=== PATIENT | male | born 1950 | race Caucasian/White ===

== ENCOUNTER 2016-09-08 16:47 | Emergency (ER) | payer OTHER ==
--- NOTE | 2016-09-08 17:09 | EDPHY ---
H & P Stated Complaint: reduced vision to right eye Time Seen by Provider: 09/08/16 17:08 HPI/ROS: Chief Complaint: Decreased vision HPI: 65-year-old male presenting complaining of worsening vision in his right eye which has been progressing for the last 14 days. Patient states that he was traveling and walking in [facility] for the past several weeks when he noticed gradually worsening blurring of his vision in his right eye. He x-ray also developed an infection in his legs and was admitted to the hospital in [facility] about a week ago. Patient had a CT scan of his head and EEG and blood work at that time which from negative. Does have a history of a seizure disorder past secondary to a traumatic brain injury. He has been compliant with medications and has not had a seizure in quite some time. Patient states that his vision is affected only in his right eye and is all of his vision. He says that he can see light but everything seems very opacified. He is not able to make out any fevers or shapes. He is normal vision in his left eye. Does not have a problem with his eye in the past. Does not wear contact lenses or glasses. He has no pain. He has not had any redness or discharge in that eye. No traumatic injuries. ROS: 10 point Review of Systems is negative except as noted in the HPI. PMH: Traumatic brain injury, seizure disorder Medications: Lamictal, Keppra, Klonopin Social History: No smoking, no alcohol, no recreational drug use Family History: non-contributory Physical Exam: General: Awake, alert, no acute distress HEENT: Nose: no rhinorrhea Eye Exam Visual Acuity: Left eye 20/20, right eye greater than 20/200 EOM: Intact OU Visual Neumann: Intact OU, patient is able to see movement in the eye but is not able to make out shapes. Pupil: Equal, round and reactive to light and accomodation OU External: Lids, lashes and margins normal OU Fundoscopy; unable to assess Anterior chambers clear without cells or flare, no hyphema, normal angles Neck: Supple, no JVD Chest: nontender, lungs clear to auscultation Heart: S1, S2 normal, no murmur Abd: Soft, non-tender, no guarding Back: no CVA tenderness, no midline tenderness Ext: no edema, non-tender, there is a healing blister on in the dorsum of his left heel. There is no surrounding erythema or purulent discharge Skin: no rash Neuro: CN II-XII intact, Sensation grossly intact, Strength 5/5 in bilateral upper and lower extremities - Personal History Current Tetanus Diphtheria and Acellular Pertussis (TDAP): Yes - Medical/Surgical History Hx Asthma: No Hx Chronic Respiratory Disease: No Hx Diabetes: No Hx Cardiac Disease: No Hx Renal Disease: No Hx Cirrhosis: No Hx Alcoholism: No Hx HIV/AIDS: No Hx Splenectomy or Spleen Trauma: No - Social History Smoking Status: Never smoked Constitutional: Initial Vital Signs Temperature (C) 37 C 09/08/16 16:57 Heart Rate 86 09/08/16 16:57 Respiratory Rate 16 09/08/16 16:57 Blood Pressure 129/86 H 09/08/16 16:57 O2 Sat (%) 96 09/08/16 16:57 O2 Delivery Mode Room Air Allergies/Adverse Reactions: Sulfa (Sulfonamide Antibiotics) Allergy (Verified 09/08/16 16:55) Home Medications: Medication Instructions Recorded AMOXICILLIN 09/08/16 KLONOPIN 09/08/16 Keppra 09/08/16 Lamictal 09/08/16 Medical Decision Making ED Course/Re-evaluation: 65-year-old male with decreased vision right eye worsening over the last 14 days. His eye is not red. Is not painful. Anterior chambers clear. He has not had any flashes or floaters. Will discuss with Ophthalmology. Case discussed with Dr. Stanford, ophthalmology. He has seen the patient emergency department. Patient has retinal detachment. No acute surgical intervention indicated at this time given the duration extent injury. Patient lives in [place]. He will follow up with his studio manager when he turns [place] early next week. Dr. Stanford has discussed this with the patient and patient agree with the plan. Departure - Departure Disposition: Home, Routine, Self-Care Clinical Impression: Retinal detachment Condition: Good Instructions: Blurred Vision (ED) Additional Instructions: Follow up with her studio manager when you return to [place] next week. Referrals: DR EDEN [Other] - As per Instructions
[2016-09-08 18:22] VITALS: BP 134/88; PULSE 83; RESP 18; TEMP 98.1; O2SAT 98
== END 2016-09-08 18:22 | disposition home or self-care (01) ==
DX: H33.21 Serous retinal detachment, right eye (principal)